=== PATIENT | female | born 2000 | race Two or more races ===

== ENCOUNTER 2020-08-31 11:22 | Inpatient (IN) | payer OTHER ==
[~2020-08-31] VITALS: Ht 167.6 cm; Wt 100.7 kg
--- NOTE | 2020-08-31 11:44 | NUR ---
lenka, from home, had syncopal episode while infront of her computer. On room air, breathing evenly and unlabored. Connected to the monitor and pulse ox. kept comfortable, will continue to monitor accordingly.
[2020-08-31 11:53] LABS: BASOPHILS # (AUTO) 0.1 /CMM (0.0-0.2); BASOPHILS % (AUTO) 0.5 % (0.0-2.0); EOSINOPHILS % (AUTO) 1.4 % (0.0-6.0); HEMATOCRIT 40 % (33-45); HEMOGLOBIN 13.3 g/dL (11.5-14.8); LYMPHOCYTES # (AUTO) 2.6 /CMM (0.8-4.8); LYMPHOCYTES % (AUTO) 22.7 % (20.0-44.0); MEAN CORPUSCULAR HGB CONC 33 g/dl (31.0-36.0); MEAN CORPUSCULAR VOLUME 86 fL (82-100); MONOCYTES # (AUTO) 0.6 /CMM (0.1-1.30); MONOCYTES % (AUTO) 5.6 % (2.0-12.0); NEUTROPHILS # (AUTO) 7.9 /CMM (1.8-8.9); NEUTROPHILS % (AUTO) 69.8 % (43.0-81.0); PLATELET COUNT (AUTO) 382 /CMM (150-450); RED BLOOD CELL COUNT(AUTO) 4.69 MIL/uL (4.0-5.2); WHITE BLOOD COUNT (AUTO) 11.3 K/uL (4.3-11.0)
[2020-08-31] MEDS ORDERED: IV NS 0.9% 1,000 ML BAG IV ONE (12:00)
[2020-08-31 12:02] LABS: CALCIUM, SERUM 9.5 mg/dL (8.5-10.1); CARBON DIOXIDE 26 mmol/L (21-32); CHLORIDE 103 mmol/L (98-107); CREATININE 0.9 mg/dL (0.6-1.3); GLUCOSE 111 mg/dL (74-106); POTASSIUM 3.6 mmol/L (3.5-5.1); SODIUM SERUM 140 mmol/L (136-145); UREA NITROGEN, BLOOD 13 mg/dL (7-18)
[2020-08-31 12:08] LABS: ALANINE AMINOTRANSFERASE 32 U/L (12-78); ALBUMIN 3.9 g/dL (3.4-5.0); ALKALINE PHOSPHATASE 69 U/L (46-116); ASPARTATE AMINOTRANSFERASE 20 U/L (15-37); BILIRUBIN,DIRECT 0.1 mg/dL (0.0-0.2); BILIRUBIN,TOTAL 0.4 mg/dL (0.2-1.0); TOTAL PROTEIN, SERUM 8.1 g/dL (6.4-8.2)
[2020-08-31] MEDS ORDERED: LORAZEPAM 1 MG TABLET PO ONE (13:30)
[2020-08-31] MEDS ORDERED: LORAZEPAM 1 MG TABLET ONE (13:33)
[2020-08-31] MEDS ORDERED: KETOROLAC TROMETHAMINE 15 MG/ML VIAL ONE (15:15)
[2020-08-31] MEDS ORDERED: KETOROLAC TROMETHAMINE INJ 30 MG/ML VIAL IV ONE (15:30)
--- NOTE | 2020-08-31 15:37 | NUR ---
patient seen by Dr Walton.
[2020-08-31] MEDS ORDERED: ONDANSETRON HCL/PF 4 MG/2 ML VIAL IVP PRN (16:00)
[2020-08-31] MEDS ORDERED: MAG HYDROX/AL HYDROX/SIMETH 30 ML UDC PO PRN (16:00)
[2020-08-31] MEDS ORDERED: MAGNESIUM HYDROXIDE 30 ML UDC PO PRN (16:00)
[2020-08-31] MEDS ORDERED: LORAZEPAM INJ 2 MG/ML VIAL IV PRN (16:00)
[2020-08-31] MEDS ORDERED: Z GUARD REMEDY 2 OZ OINT TP PRN (16:00)
--- NOTE | 2020-08-31 16:26 | NUR ---
LAB CALLED PT COVID RESULT NEGATIVE (-)
--- NOTE | 2020-08-31 16:27 | NUR ---
GOT BED 328-1
--- NOTE | 2020-08-31 17:48 | NUR ---
Report given to SYLVAIN Barrios
[2020-08-31] MEDS: IV NS 0.9% 1,000 ML IV PRN (18:03)
--- NOTE | 2020-08-31 18:06 | NUR ---
TRANSFERED THE PATIENT TO [facility] PER [facility].
[2020-08-31 18:15] VITALS: BP 134/70
--- NOTE | 2020-08-31 18:15 | NUR ---
ms rn received a new admission from er,20 year old female, awake,alert,oriented x4, came in w/ dx of cyncope, denies pain at this time, will monitor patient.
[2020-08-31] MEDS: LEVETIRACETAM (250 MG) 250 MG TABLET PO SCH (18:33)
[2020-08-31] MEDS: ACETAMINOPHEN 325 MG TABLET PO PRN (18:33)
[2020-08-31 20:00] VITALS: BP 120/54
--- NOTE | 2020-08-31 23:47 | NUR ---
RN NOTES TRANSFER OF MARYLU TO TAM[facility] NARAYAN
--- NOTE | 2020-08-31 23:50 | NUR ---
MS RN NOTES RECEIVED PT SLEEPING. EASILY AROUSABLE. NOT IN ANY DISTRESS. NO SOB NOTED. NO S/SX OF ANY PAIN OR DISCOMFORT AT THIS TIME. WITH IVF INFUSING WELL. KEPT ON SEIZURE PREC AAT. CALL LIGHT WITHIN REACH. BED IN LOWEST POSITION. SR UP X 3 WITH BED ALARM ON FOR SAFETY. WILL CONTINUE TO MONITOR.
[2020-09-01] VITALS: BP 105/65
[2020-09-01 04:00] VITALS: BP_SYST 120; BP_SYST 124; BP_SYST 139; BP_DIAS 78; BP_DIAS 82; BP_DIAS 85
[2020-09-01 05:00] VITALS: BP 124/82
[2020-09-01] MEDS: IV NS 0.9% 1,000 ML IV PRN (05:06)
[2020-09-01 06:53] LABS: BASOPHILS % (AUTO) 0.4 % (0.0-2.0); EOSINOPHILS % (AUTO) 1.3 % (0.0-6.0); HEMATOCRIT 36 % (33-45); LYMPHOCYTES # (AUTO) 2.7 /CMM (0.8-4.8); MEAN CORPUSCULAR HGB CONC 33 g/dl (31.0-36.0); MEAN CORPUSCULAR VOLUME 86 fL (82-100); MONOCYTES # (AUTO) 0.5 /CMM (0.1-1.30); NEUTROPHILS # (AUTO) 4.8 /CMM (1.8-8.9); NEUTROPHILS % (AUTO) 59.3 % (43.0-81.0); PLATELET COUNT (AUTO) 295 /CMM (150-450); RED BLOOD CELL COUNT(AUTO) 4.23 MIL/uL (4.0-5.2); WHITE BLOOD COUNT (AUTO) 8.1 K/uL (4.3-11.0)
--- NOTE | 2020-09-01 06:56 | NUR ---
DISPATCHER [place] NOTES AWAKE & RESPONSIVE. NOT IN ANY DISTRESS. NO SOB NOTED. DENIES ANY PAIN OR DISCOMFORT AT THIS TIME. ON TELE SR @ 83 WITH IVF INFUSING WELL. MONITORED ACCORDINGLY. CALL LIGHT WITHIN REACH. BED IN LOWEST POSITION. SEIZURE PREC AAT. SR UP X 3 FOR SAFETY. WILL ENDORSE TO NEXT SHIFT.
[2020-09-01] MEDS ORDERED: PANTOPRAZOLE 40 MG TABLET.DR PO SCH (07:30)
[2020-09-01 07:49] LABS: THYROID STIMULATING HORMONE 1.869 uIU/mL (0.358-3.74)
--- NOTE | 2020-09-01 07:54 | NUR ---
RN OPENING NOTE RECEIVED PATIENT IN BED, AO X 4, ABLE TO RESPONDS ALL STIMULI. DOES NO APPEARS PAIN OR DISTRESS, SKIN IS WARM TO TOUCH, KEEP CLEAN/DRY INTACT IV SITE. RESPIRATORY EVEN AND UNLABORED ON ROOM AIR. KEPT ELEVATED HOB FOR ENSURE AIRWAY AND ASPIRATION PRECAUTION, ALSO LOWEST BED POSITION. CALL LIGHT WITHIN REACH, WILL CONTINUE TO MONITOR.
[2020-09-01 08:00] VITALS: BP 134/79
--- NOTE | 2020-09-01 08:16 | NUR ---
PATIENT SEEN BY DR. LEE AND RECEIVED ORDER KEPPRA 1G VIA IV X 1, NOTED AND CARRY OUT.
[2020-09-01 08:18] LABS: CALCIUM, SERUM 8.4 mg/dL (8.5-10.1); CREATININE 0.8 mg/dL (0.6-1.3); MAGNESIUM 1.9 mg/dL (1.8-2.4); PHOSPHORUS 4.2 mg/dL (2.5-4.9)
[2020-09-01] MEDS: ACETAMINOPHEN 325 MG TABLET PO PRN (08:28)
--- NOTE | 2020-09-01 08:50 | NUR ---
Patient already has Keppra po 500mg this morning, clarified with new order Keppra 1g IV, who said okay to add. Informed pharmacy regarding above, will give Keppra 1g IV at 1000.
[2020-09-01] MEDS: LEVETIRACETAM (250 MG) 250 MG TABLET PO SCH ×2 (09:00→17:20)
[2020-09-01] MEDS ORDERED: LEVETIRACETAM (500MG) 1,000 MG in IV NS 0.9% 100 ML IV ONE (10:00)
[2020-09-01 10:32] LABS: IRON, SERUM 88 ug/dl (50-175); TOTAL IRON BINDING CAPACITY 310 ug/dl (250-450)
[2020-09-01 10:47] LABS: FERRITIN 25 ng/mL (8-388)
[2020-09-01] MEDS ORDERED: LEVE250T2 PO (17:45)
--- NOTE | 2020-09-01 18:31 | NUR ---
PATIENT DISCHARGE TO HOME, GIVEN DISCHARGE INSTRUCTION INCLUDE F/U PRIMARY DOCTOR, BRIDGE WELDER PRESCRIPTION MEDICATION AND SIDE EFFECT. PATIENT DENIES DISTRESS OR PAIN. LEFT FACILITY ACCOMPANIED BY FATHER TO THE PRIVATE CAR, PATIENT REFUSED WHEEL CHAIR. IN STABLE CONDITION.
[2020-09-01 19:55] LABS: BILIRUBIN,URINE NEGATIVE (NEGATIVE); COLOR,URINE YELLOW (YELLOW); LEUKOCYTE ESTERASE ,URINE NEGATIVE (NEGATIVE); NITRITE, URINE NEGATIVE (NEGATIVE); PROTEIN,URINE NEGATIVE (NEGATIVE); UGLUCOSE NEGATIVE (NEGATIVE); UROBILINOGEN,URINE 0.2 EU/dL (0.2)
== END 2020-09-01 18:30 | disposition home or self-care (01) | DRG 101 ==
LOC: ER 11:31 → TELE 16:49
PROVIDERS: ADMIT Registered Nurse; ATTEND Registered Nurse
DX: R56.9 Unspecified convulsions (principal); F41.9 Anxiety disorder, unspecified; E86.0 Dehydration; E66.01 Morbid (severe) obesity due to excess calories; D72.829 Elevated white blood cell count, unspecified; G47.33 Obstructive sleep apnea (adult) (pediatric); Z68.35 Body mass index [BMI] 35.0-35.9, adult; Z20.822 Contact with and (suspected) exposure to COVID-19; G47.10 Hypersomnia, unspecified
CPT/HCPCS: 36415; 70450-TC; 70551-TC; 71045-TC; 80048-TC; 80061-TC; 80076-TC; 82728-TC; 83540-TC; 83735-TC; 84100-TC; 84443-TC; 84484-TC; 84703-TC; 85025-TC; 87081-TC; 93307-TC; 93880-TC; 95819-TC; C9803; G0378; G0480; J1885; J1953; J7030